=== PATIENT | female | born 1950 ===

== ENCOUNTER → 2018-01-17 | Outpatient (REF) | payer MEDICARE, MEDICAID | LOC: ZZLCC 08:17 | PROVIDERS: ATTEND Family Medicine | DX: Z51.81 Encounter for therapeutic drug level monitoring (principal); T81.4XXA Infection following a procedure, initial encounter | CPT/HCPCS: 80202; 85027; 85651; 86140 ==

== ENCOUNTER → 2018-01-27 | Outpatient (REF) | payer MEDICARE, MEDICAID | LOC: ZZLCC 11:03 | PROVIDERS: ATTEND Family Medicine | DX: M05.80 Other rheumatoid arthritis with rheumatoid factor of unspecified site (principal); M05.89 Other rheumatoid arthritis with rheumatoid factor of multiple sites | CPT/HCPCS: 82040; 82247; 82310; 82374; 82435; 82565; 82947; 84075; 84132; 84155; 84295; 84450; 84460; 84520; 85651; 86140 ==